=== PATIENT | female | born 1935 | race Caucasian/White ===

== ENCOUNTER 2017-12-07 13:25 | Day surgery (SDC) | payer MEDICARE ==
[~2017-12-07 13:25] MED LIST: ASPI81CH PO; ATOR10 PO; CALCAVITD PO; PANT40 PO
== END 2017-12-07 23:13 | disposition home or self-care (01) ==
LOC: US 13:25
PROC: 07B13ZX Excision of Right Neck Lymphatic, Percutaneous Approach, Diagnostic (ICD-10-PCS; principal; 2017-12-07)
DX: M79.89 Other specified soft tissue disorders (principal); R59.0 Localized enlarged lymph nodes; E78.5 Hyperlipidemia, unspecified; K21.9 Gastro-esophageal reflux disease without esophagitis
CPT/HCPCS: 38505; 76942; 88305; 88312

== ENCOUNTER 2020-05-16 06:22 | Day surgery (SDC) | payer MEDICARE ==
[~2020-05-16] VITALS: Ht 172.7 cm; Wt 78.7 kg
[~2020-05-16 06:22] MED LIST changes: +Fosamax70 MG PO
--- NOTE | 2020-05-16 07:09 | NUR ---
History, Chart, Medications and Allergies reviewed before start of procedure. Lungs clear T/O to Auscultation. Patient confirms NPO status and agrees with scheduled surgery. Pre-Op teaching done. Pt verbalizes understanding. Patient States Post-Procedure ride home has been arranged.
--- NOTE | 2020-05-16 07:28 | NUR ---
05/16/20 0728 Mckenna Villanueva History, Chart, Medications and Allergies reviewed before start of procedure. PATIENT CONFIRMS NPO STATUS AND AGREES WITH SCHEDULED PROCEDURE. MONITOR INTACT WITH CONTINUOUS PULSE OXIMETRY AND INTERMITTENT BP.O2 VIA N/C INTACT THROUGHOUT SEDATION/PROCEDURE. 3-LEAD EKG REVIEWED WITH PHYSICIAN PRIOR TO START OF PROCEDURE. PATIENT DETERMINED TO BE ASA APPROPRIATE FOR PROPOFOL SEDATION PRIOR TO START OF PROCEDURE BY DR. PAEZ. Bite Block Placed.
--- NOTE | 2020-05-16 08:42 | NUR ---
Patient up to Ambulate independently. Gait steady. Discharge instructions reviewed with patient. Patient verbalizes understanding. Copy given to patient to take home. Discharged via wheelchair to private car for ride home.
== END 2020-05-16 23:27 | disposition home or self-care (01) ==
LOC: ORSCMMR 06:22 → ORD 06:22 → ORSCMMR 06:24 → ORD 07:30
PROVIDERS: Internal Medicine Gastroenterology
PROC: 0D758ZZ Dilation of Esophagus, Via Natural or Artificial Opening Endoscopic (ICD-10-PCS; principal; 2020-05-16 07:30)
PROC: 0DB68ZX Excision of Stomach, Via Natural or Artificial Opening Endoscopic, Diagnostic (ICD-10-PCS; principal; 2020-05-16 07:30)
DX: R13.14 Dysphagia, pharyngoesophageal phase (principal); K31.7 Polyp of stomach and duodenum; K22.2 Esophageal obstruction; K44.9 Diaphragmatic hernia without obstruction or gangrene; Z79.899 Other long term (current) drug therapy; Z79.82 Long term (current) use of aspirin
CPT/HCPCS: 88305; C1726; J2704; J7120

== ENCOUNTER → 2023-01-30 | Outpatient (CLI) | payer MEDICARE ==
[2023-01-30 13:48] LABS: Albumin, Blood 2.9 g/dL (3.4-5.0); Anion Gap 4 mmol/L (6-16); Blood Urea Nitrogen 23 mg/dL (8-24); Bun/Creatinine Ratio 17.2 (12.0-20.0); CO2, Blood 27 mmol/L (21-32); Calcium, Blood 8.7 mg/dL (8.5-10.1); Chloride, Blood 113 mmol/L (98-108); Creatinine, Blood 1.34 mg/dL (0.40-1.00); Glomerular Filtration Rate 38 (60-); Glucose, Blood 97 mg/dL (70-99); Phosphorus, Blood 3.3 mg/dL (2.5-4.9); Potassium, Blood 4.3 mmol/L (3.5-5.5); Sodium, Blood 144 mmol/L (136-145)
== END ==
LOC: LAB SHORT 09:22 → LAB 09:22
PROVIDERS: Family Medicine
DX: N18.31 Chronic kidney disease, stage 3a (principal)
CPT/HCPCS: 80069

== ENCOUNTER 2025-05-07 09:56 | Observation (INO) | payer OTHER ==
[~2025-05-07] VITALS: Ht 167.6 cm; Wt 72.6 kg
[2025-05-07] MEDS ORDERED: NS 1,000 ML IV SCH (10:05)
[2025-05-07 10:28] LABS: BASOPHILS ABSOLUTE AUTO 0.04 K/mm3 (0.00-0.23); BASOPHILS PERCENT AUTO 1 % (0-2); EOSINOPHILS ABSOLUTE AUTO 0.08 K/mm3 (0.00-0.68); EOSINOPHILS PERCENT AUTO 1 % (0-6); Hematocrit 41.3 % (33.0-51.0); Hemoglobin 13.2 g/dL (11.5-16.0); IMMATURE GRAN ABSOLUTE AUTO 0.02 K/mm3 (0.00-0.10); IMMATURE GRAN PERCENT AUTO 0 % (0-1); LYMPHOCYTES ABSOLUTE AUTO 1.24 K/mm3 (0.84-5.20); LYMPHOCYTES PERCENT AUTO 15 % (21-46); MONOCYTES ABSOLUTE AUTO 0.31 K/mm3 (0.16-1.47); MONOCYTES PERCENT AUTO 4 % (4-13); Mean Corpuscular HGB Conc 32.0 g/dL (31.5-36.5); Mean Corpuscular Volume 97 fL (80-100); NEUTROPHILS ABSOLUTE AUTO 6.70 K/mm3 (1.96-9.15); NEUTROPHILS PERCENT AUTO 80 % (41-73); NRBC ABSOLUTE 0.00 K/mm3 (0.00-0.02); NRBC Auto 0.0 /100 WBC (0.0-0.2); Platelet Count 302 K/mm3 (150-400); RDW Coefficient Variation 14.0 % (11.7-14.2); RDW Standard Deviation 49.8 fL (35.1-46.3)
[2025-05-07 10:49] LABS: Alanine Aminotransfer (ALT/SGP 18.0 U/L (12-78); Albumin, Blood 3.7 g/dL (3.4-5.0); Albumin/Globulin Ratio 1.2 (0.8-1.8); Anion Gap 10.0 mmol/L (3-11); Aspartate Aminotrans (AST/SGOT 16.0 U/L (12-37); Bilirubin, Total 1.1 mg/dL (0.1-1.0); Blood Urea Nitrogen 36.0 mg/dL (8-24); CO2, Blood 26.0 mmol/L (21-32); Calcium, Blood 9.9 mg/dL (8.5-10.1); Chloride, Blood 109.0 mmol/L (98-108); Creatinine, Blood 1.14 mg/dL (0.40-1.00); Globulin, Blood 3.2 g/dL (2.2-4.0); Glucose, Blood 124.0 mg/dL (70-99); Potassium, Blood 4.6 mmol/L (3.5-5.5); Sodium, Blood 140.0 mmol/L (136-145); Total Protein, Blood 6.9 g/dL (6.4-8.2)
[2025-05-07] MEDS ORDERED: FLU VACC TS2025(65UP)/MF59C/PF 45 MCG/0.5 ML SYRINGE IM SCH (12:50)
[2025-05-07 14:18] VITALS: BP 161/97
[2025-05-07] MEDS ORDERED: MIDO5 PO (14:41)
[2025-05-07] MEDS ORDERED: ATOMOXETINE HCL18 MG PO (15:08)
[2025-05-07 15:22] VITALS: BP 140/82
--- NOTE | 2025-05-07 17:53 | NUR ---
1405- pt arrived to medical floor in stable condition with brittany.
--- NOTE | 2025-05-07 18:04 | NUR ---
SUMMARY- AAOX2-3. PT IS FORGETFUL AND HAS A DIFFICULT TIME UNDERSTANDING CUES AND VERBAL COMMANDS-ESPECIALLY WHEN NEEDING TO USE THE BSC. PT DENIES ANY PAIN THUS FAR SINCE ADMISSION THIS SHIFT. PT IS A X1 ASSIST AND PT AND HER SON, SERINA, STATE THAT SHE HAS HAD SEVERAL FALLS FOR MONTHS NOW DUE TO HER "DIZZY SPELLS." MED REC COMPLETE PER PT'S SON. ON RA. PT IS NPO PER ORDERS. PT PULLED HER IV OUT THIS SHIFT AND IS VERY PLEASANTLY CONFUSED. PT PLACED ON CAMERA TO HELP WITH SAFETY GETTING OOB W/O CALLING AND TO PREVENT PULLING OUT ANOTHER IV. CAMERA HAS WORKED THUS FAR SINCE ABOUT 1600.
[2025-05-07 19:36] VITALS: BP 161/88
[2025-05-07] MEDS ORDERED: Haloperidol Lactate Inj. 5 MG/ML Injection IV PRN (21:20)
[2025-05-07] MEDS ORDERED: LORazepam 2 MG/ML 1ML Injection IV PRN (21:20)
[2025-05-08] VITALS (7 sets, daily range): BP systolic 126–149; BP diastolic 60–84
--- NOTE | 2025-05-08 05:44 | NUR ---
SHIFT SUMMARY (306) PT IS A&OX1-2 TO PERSON AND SELF. PT IS PLEASANTLY CONFUSED. ATIVAN WAS ORDERED AND ADMINISTERED DUE TO THE LACK OF ABILITY TO REDIRECT AND AGITATION. NON CLINICAL SITTER AT BEDSIDE T/O SHIFT. PT RESTED T/O SHIFT WITH EVEN AND UNLABORED RESPIRATION, BED IN THE LOWEST POSITION, AND CALL LIGHT WITHIN REACH.
--- NOTE | 2025-05-08 15:04 | NUR ---
PT INTO SDS VIA [facility] FOR EGD R/T DYSPHAGIA. PT IS ACCOMPANIED BY HER SON SERINA WHO IS ALSO HER POA. Patient confirms NPO status and agrees with scheduled surgery. Pre-Op teaching done. Pt verbalizes understanding. History, Chart, Medications and Allergies reviewed before start of procedure.
--- NOTE | 2025-05-08 16:18 | NUR ---
05/08/25 1618 Antonio Umana DENTURES OUT MONITOR INTACT WITH CONTINUOUS PULSE OXIMETRY, CONTINUOUS END TITAL CO2, 3-LEAD EKG AND INTERMITTENT BLOOD PRESSURE. Bite Block Placed O2 VIA POM INTACT THROUGHOUT SEDATION/PROCEDURE.
--- NOTE | 2025-05-08 18:13 | NUR ---
PT A/OX1-2. PLEASANT AND COOPERATIVE WITH CARE. PT REMAINS IMPULSIVE, BED ALARM IS ARMED AND CAMERA IS SET UP IN ROOM. SHE IS A 1PA W GB AND FWW TO THE BATHROOM. FAMILY HAS BEEN AT THE BEDSIDE T/O SHIFT. PT IS CURRENTLY RESTING IN BED, CHEST RISE AND FALL IS SYMMETRICAL. BED IS IN LOWEST POSITION, CALL LIGHT IS IN REACH. NO ACUTE NEEDS AT THIS TIME
[2025-05-09 04:24] VITALS: BP 125/61
--- NOTE | 2025-05-09 04:57 | NUR ---
ORIENTING NURSE DOCUMENTATION REVIEW: TREATMENTS, MEDICATIONS AND PATIENT CARE PROVIDED TO PATIENT AND DOCUMENTATION ENTERED BY ORIENTING NURSEKRISTIE, OVERSEEN BY THIS RN.
--- NOTE | 2025-05-09 05:05 | NUR ---
SHIFT SUMMARY PT IS A&OX1-2, HOWEVER PLEASANTLY CONFUSED AND REDIRECTABLE. PT HAS TELE SITTER AT BEDSIDE. POSSIBLE DISCHARGE TODAY. PT UP TO BEDSIDE COMMODE WITH 1 PERSON ASSIST AND FWW. PT RESTED T/O SHIFT WITH EVEN AND UNLABORED RESPIRATIONS, BED IN THE LOWEST POSITION, AND CALL LIGHT WITHIN REACH.
[2025-05-09 07:09] LABS: BASOPHILS ABSOLUTE AUTO 0.03 K/mm3 (0.00-0.23); BASOPHILS PERCENT AUTO 0 % (0-2); EOSINOPHILS ABSOLUTE AUTO 0.14 K/mm3 (0.00-0.68); EOSINOPHILS PERCENT AUTO 2 % (0-6); Hematocrit 35.6 % (33.0-51.0); Hemoglobin 11.7 g/dL (11.5-16.0); IMMATURE GRAN ABSOLUTE AUTO 0.02 K/mm3 (0.00-0.10); IMMATURE GRAN PERCENT AUTO 0 % (0-1); LYMPHOCYTES ABSOLUTE AUTO 1.70 K/mm3 (0.84-5.20); LYMPHOCYTES PERCENT AUTO 22 % (21-46); MONOCYTES ABSOLUTE AUTO 0.56 K/mm3 (0.16-1.47); MONOCYTES PERCENT AUTO 7 % (4-13); Mean Corpuscular HGB Conc 32.9 g/dL (31.5-36.5); Mean Corpuscular Volume 96 fL (80-100); NEUTROPHILS ABSOLUTE AUTO 5.36 K/mm3 (1.96-9.15); NEUTROPHILS PERCENT AUTO 69 % (41-73); NRBC ABSOLUTE 0.00 K/mm3 (0.00-0.02); NRBC Auto 0.0 /100 WBC (0.0-0.2); Platelet Count 254 K/mm3 (150-400); RDW Coefficient Variation 13.6 % (11.7-14.2); RDW Standard Deviation 48.1 fL (35.1-46.3)
[2025-05-09 07:30] LABS: Anion Gap 7.0 mmol/L (3-11); Blood Urea Nitrogen 32.0 mg/dL (8-24); CO2, Blood 25.0 mmol/L (21-32); Calcium, Blood 8.7 mg/dL (8.5-10.1); Chloride, Blood 111.0 mmol/L (98-108); Creatinine, Blood 0.91 mg/dL (0.40-1.00); Glucose, Blood 95.0 mg/dL (70-99); Potassium, Blood 3.8 mmol/L (3.5-5.5); Sodium, Blood 139.0 mmol/L (136-145)
[2025-05-09 08:20] VITALS: BP 116/66
[2025-05-09] MEDS ORDERED: SUCR1 PO (12:57)
== END 2025-05-09 13:50 | disposition home or self-care (01) ==
LOC: ER 09:56 → MEDS 09:57 → ENPENDDIS 05-09 11:39 → MEDS 05-09 13:50
PROVIDERS: Emergency Medicine; Family Medicine; Internal Medicine; ADMIT Family Medicine
PROC: 0DB38ZX Excision of Lower Esophagus, Via Natural or Artificial Opening Endoscopic, Diagnostic (ICD-10-PCS; principal; 2025-05-08 16:00)
PROC: 0DB68ZX Excision of Stomach, Via Natural or Artificial Opening Endoscopic, Diagnostic (ICD-10-PCS; principal; 2025-05-08 16:00)
DX: T18.128A Food in esophagus causing other injury, initial encounter (principal); K22.10 Ulcer of esophagus without bleeding; K31.7 Polyp of stomach and duodenum; K29.70 Gastritis, unspecified, without bleeding; N18.30 Chronic kidney disease, stage 3 unspecified; K21.9 Gastro-esophageal reflux disease without esophagitis; Z79.899 Other long term (current) drug therapy
CPT/HCPCS: 36415; 80048; 80053; 85025; 88305; 88342; 93005; 93010; 96374; 99285-25; G0378; J2060; J7030; J7120